=== PATIENT | female | born 1995 | race Two or more races ===

== ENCOUNTER 2023-03-03 08:59 | Emergency (ER) | payer MEDICAID ==
[~2023-03-03] VITALS: Ht 170.2 cm; Wt 80.1 kg
[2023-03-03 09:17] VITALS: BP 123/75; PULSE 100; RESP 16; TEMP 97.9; O2SAT 98
[2023-03-03] MEDS ORDERED: LIDOCAINE VISCOUS 2% 15ML UD MT ONE (09:30)
[2023-03-03] MEDS ORDERED: cefTRIAXone SOD 1,000 MG VL IM ONE (09:30)
[2023-03-03] MEDS ORDERED: DexAMETHasone SOD PHOS 10MG/1ML VIAL INJ IM ONE (09:30)
[2023-03-03] MEDS ORDERED: ONDANSETRON ODT 4 MG TAB PO ONE (09:30)
[2023-03-03] MEDS ORDERED: CLIN300C70 PO (10:00)
[2023-03-03] MEDS ORDERED: PRED20TA2 PO (10:00)
[2023-03-03] MEDS ORDERED: ZOFR4T PO (10:00)
[2023-03-03] MEDS ORDERED: LIDV15LQ MT (10:00)
== END 2023-03-03 10:07 | disposition home or self-care (01) ==
LOC: ER 08:59
DX: R50.9 Fever, unspecified (principal); J03.90 Acute tonsillitis, unspecified; R11.10 Vomiting, unspecified
CPT/HCPCS: 96372; 99284; J0696; J1100; Q0162

== ENCOUNTER 2025-01-15 10:06 | Emergency (ER) | payer MEDICAID ==
[~2025-01-15] VITALS: Ht 170.2 cm; Wt 82.8 kg
[~2025-01-15 10:06] MED LIST: CLIN1CAP70 PO; LIDO2SOL MT; PRED20TA2 PO; ZOFR4T PO
[2025-01-15] MEDS ORDERED: CEPH500C PO (11:07)
[2025-01-15] MEDS ORDERED: HYDR50TA69 PO (11:07)
[2025-01-15 11:12] VITALS: BP 140/77; PULSE 95; RESP 16; TEMP 98.7; O2SAT 97
--- NOTE | 2025-01-15 11:18 | ED.PDOC ---
History of Present Illness(SKN HPI Comments A 29 YEAR OLD MALE PRESENTS TO THE ED WITH COMPLAINT OF RASH. PATIENT STATES SHE HAS BEEN HAVING A RASH SINCE NIGHT. PATIENT STATES SHE NOTICED RASH STARTED BY THE LEFT HIP AND STATES IT SPREAD TO THE CHEST. PATIENT STATES LAST NIGHT SHE HAD ASSOCIATED FEVER AND CHILLS. PATIENT STATES TODAY SHE IS HAVING ASSOCIATED ITCHING BUT DENIES ANY OTHER SYMPTOMS. PATIENT DENIES SHORTNESS OF BREATH, CHEST PAIN, ABDOMINAL PAIN, NAUSEA, VOMITING, HEADACHE, OR OTHER COMPLAINTS. NO OTHER SYMPTOMS OR MODIFYING FACTORS AT THIS TIME. PATIENT IS AL ERT, ORIENTED X 4, AND HAS STEADY GAIT. Chief Complaint: Rash Time Seen by MD: 11:15 Primary Care Provider: Jack History of Present Illness: Nurses Notes, Medications, Allergies Allergies: Coded Allergies: NO KNOWN ALLERGIES (Unverified , 08/30/14) Home Meds Active Scripts Cephalexin Monohydrate (Cephalexin) 500 Mg Cap, 1 CAP PO QID, #32 CAP Prov:HAIM VU 01/15/25 Hydroxyzine Hcl (Hydroxyzine Hcl) 50 Mg Tab, 1 TAB PO BID, #30 TAB Prov:HAIM VU 01/15/25 Ondansetron Odt 4MG Tab (ZOFRAN PO) 4 Mg Tb, 1 MG PO Q8HR, #10 TAB ODT TAB-DISSOLVE IN MOUTH, THEN SWALLOW as needd for vomiting Prov:AGUSTIN SMITH NP 03/03/23 Lidocaine HCl (Mouth-Throat) (Lidocaine Viscous) 2 % Silvina, 5 ML MT Q6HR, #100 ML as neeed for sorethroat Prov:AGUSTIN SMITH CRIMINAL PSYCHOLOGIST 03/03/23 Prednisone (Prednisone) 20 Mg Tab, 1 TAB PO BID for 5 Days, #10 TAB start tomorrow with food Prov:AGUSTIN SMITH CRIMINAL PSYCHOLOGIST 03/03/23 Clindamycin Hcl (Clindamycin Hcl) 300 Mg Cap, 1 CAP PO QID for 10 Days, #40 CAP with food Prov:AGUSTIN SMITH NP 03/03/23 Information Source: Patient Mode of Arrival: Ambulatory Severity: Mild, Moderate Timing: Days Duration: Since onset, Days Prehospital treatment: None Location: Back, Buttock, Leg Mechanism: Insect Developed: Pruritus, Rash Occurence: Indoors Object: None Condition of Object: None Retained Foreign Body: No Wound Type: Papule Immunization Status of Animal: Current Tetanus: UTD Associated Signs and Symptoms: Redness, Pain Past Medical History PAST MEDICAL HISTORY: Denies Surgical History: Denies all surgeries DIPLOMATIC INTERPRETER/TRANSLATOR History: No Pertinent DIPLOMATIC INTERPRETER/TRANSLATOR History Family History Family History: Unknown Social History Smoker: Non-Smoker Alcohol: Denies ETOH Use Drugs: Denies Drug Use Lives In: Home Constitutional: denies: chills, diaphoresis, fatigue, fever, malaise, sweats, weakness, others EENTM: denies: blurred vision, double vision, ear bleeding, ear discharge, ear drainage, ear pain, ear ringing, eye pain, eye redness, hearing loss, mouth pain, mouth swelling, nasal discharge, nose bleeding, nose congestion, nose pain, photophobia, tearing, throat pain, throat swelling, voice changes, others Respiratory: denies: cough, hemoptysis, orthopnea, SOB at rest, shortness of breath, SOB with excertion, stridor, wheezing, others Cardiovascular: denies: chest pain, dizzy spells, diaphoresis, Dyspnea on exertion, edema, irregular heart beat, left arm pain, lightheadedness, palpitations, PND, syncope, others Gastrointestinal: denies: abdomen distended, abdominal pain, blood streaked bowels, constipated, diarrhea, dysphagia, difficulty swallowing, hematemesis, melena, nausea, poor appetite, poor fluid intake, rectal bleeding, rectal pain, vomiting, others Genitourinary: denies: abnormal vagina bleeding, burning, dyspareunia, dysuria, flank pain, frequency, hematuria, incontinence, pain, , vagina discharge, urgency, others Neurological: denies: dizziness, fainting, headache, left sided numbness, left sided weakness, numbness, paresthesia, pre-existing deficit, right sided numbness, right sided weakness, seizure, speech problems, tingling, tremors, weakness, others Musculoskeletal: denies: back pain, gout, joint pain, joint swelling, muscle pain, muscle stiffness, neck pain, others Integumetry: reports: lesions, lumps, rash; denies: bruises, change in color, change in hair/nails, dryness, laceration, wounds, others Allergic/Immunocompromised: denies: Difficulty Healing, Frequent Infections, Hives, Itching, others Hematologic/Lymphatic: denies: anemia, blood clots, easy bleeding, easy bruising, swollen glands, others Endocrine: denies: excessive hunger, excessive sweating, excessive thirst, excessive urination, flushing, intolerance to cold, intolerance to heat, unexplained weight gain, unexplained weight loss, others Psychiatric: denies: anxiety, bipolar disorder, depression, hopeless, panic disorder, schizophrenia, sleepless, suicidal, others All Other Systems: Reviewed and Negative (SEE HPI) Physical Exam General Appearance: No Apparent Distress, Normal HEENT: Normal ENT Inspection, PERRL/EOMI, Pharynx Normal, TMs Normal Neck: Full Range of Motion, Non-Tender, Normal, Normal Inspection Respiratory: Chest Non-Tender, Lungs Clear, No Accessory Muscle Use, No Respiratory Distress, Normal Breath Sounds Cardiovascular: No Edema, No JVD, No Murmur, No Gallop, Normal Peripheral Pulses, Regular Rate/Rhythm Breast Exam: Deferred Gastrointestinal: No Organomegaly, Non Tender, No Pulsatile Mass, Normal Bowel Sounds, Soft Genitalia: Deferred Pelvic: Deferred Rectal: Deferred Extremities: No calf tenderness, Normal capillary refill, Normal inspection, Normal range of motion, Non-tender, No pedal edema Musculoskeletal : Apperance: Normal Neurologic: Alert, fruit dumper II-XII nml as Tested, No Motor Deficits, Normal Affect, Normal Mood, No Sensory Deficits Cerebellar Function: Normal Reflexes: Normal Skin: Dry, Warm, Other (MULTIPLE SMALL PAPULAR AND MACULAR SKIN BUMPS ON BACK, THIGHS AND ARMS, +BITE KRAUSE, NO SWELLING AND PUS DRAINAGE. ) Peripheral Pulses: 2+ carotid (R), 2+ carotid (L), 2+ dorsalis pedis (R), 2+ dorsalis pedis (L) Lymphatic: No Adenopathy Was a procedure done? Was a procedure done?: No Differential Diagnosis (INTG) Differential Diagnosis: Atopic dermatitis, Cellulitis (FINISH THE), Contact Dermatitis, Impetigo, Intertrigo, Scabies, Urticaria X-Ray, Labs, Meds, VS Vital Signs Date Time Temp Pulse Resp B/P (MAP) Pulse Ox O2 Delivery O2 Flow Rate FiO2 01/15/25 11:12 98.7 95 16 140/77 (98) 97 98.7 01/15/25 11:12 95 16 97 Room Air* 0 21 01/15/25 10:18 98.1 106 16 144/91 98 98.1 X-Ray, Labs, Meds, VS Comment COURSE: EXTERNAL MEDICAL RECORDS REVIEWED: [NONE] INDEPENDENT HISTORIANS: [NONE] SOCIAL DETERMINANTS OF HEALTH: [NONE] LABS ORDERED: NONE REVIEWED AND INTERPRETED RESULTS: NONE IMAGING ORDERED: NONE TREATMENTS ORDERED: NO PROCEDURES PERFORMED: NONE CRITICAL CARE TIME: NONE I HAVE DISCUSSED THE PATIENT WITH THE ATTENDING PHYSICIAN, DR DE LA GARZA HE AGREES WITH THE PATIENT'S PLAN OF CARE AND DISPOSITION. BASED ON HISTORY OF PRESENT ILLNESS, AND PHYSICAL EXAM, PATIENT WILL BE DISCHARGED HOME. DISCUSSED PLAN FOR DISCHARGE HOME WITH RX: KEFLEX AND VISTARIL. MEDICATION WARNINGS GIVEN. SHARED DECISION MAKING: DISCUSSED WITH PATIENT THAT THEIR WORKUP WAS NORMAL. PATIENT INSTRUCTED TO FOLLOW UP WITH PRIMARY CARE PROVIDER IN 1-2 DAYS FOR RE- EVALUATION OF SYMPTOMS. PATIENT VERBALIZES UNDERSTANDING TO RETURN TO ED FOR NEW OR WORSENING SYMPTOMS OR IF FOLLOW UP WITH PCP CANNOT BE OBTAINED. PATIENT FEELS COMFORTABLE GOING HOME AT THIS TIME. ALL QUESTIONS ADDRESSED AT TIME OF DISCHARGE. Time of 1ST Reevaluation: 11:45 Reevaluation 1ST: Unchanged Patient Education/Counseling: Diagnosis, Treatment, Need For Follow Up Family Education/Counseling: Diagnosis, Treatment, No Family Present Medical Screening: No EMC Exist At This Time SEPSIS Sepsis Screen Date sepsis recognized/suspect: Jan 15, 2025 Time Sepsis recognized/suspect: 1015 Recent Procedure: No On Antibiotic Therapy: No Respiratory Rate >20: No Heart Rate >90: Yes Temp<36 C (96.8 F) or >38.3 C: No SBP <90 or MAP <65 mmHG: No New Acute Mental Status Change: No Is the patient on CPAP, BIPAP,: No Vital Signs Date Time Temp Pulse Resp B/P (MAP) Pulse Ox O2 Delivery O2 Flow Rate FiO2 01/15/25 11:12 98.7 95 16 140/77 (98) 97 98.7 01/15/25 11:12 95 16 97 Room Air* 0 21 01/15/25 10:18 98.1 106 16 144/91 98 98.1 Departure 1 Departure Time of Disposition: 11:40 Impression: Primary Impression: Insect bite wound Disposition: 01 HOME / SELF CARE / HOMELESS Condition: Stable Additional Instructions: F/U PCP IN 2 DAYS RECHECK. IF CONDITION BECOME WORSE, RETURN TO ED [facility]. e-Prescriptions Cephalexin Monohydrate (Cephalexin) 500 Mg Cap 1 CAP PO QID, #32 CAP Prov: HAIM VU 01/15/25 Hydroxyzine Hcl (Hydroxyzine Hcl) 50 Mg Tab 1 TAB PO BID, #30 TAB Prov: HAIM VU 01/15/25 Discharged With: Self Critical Care Note Critical Care Time?: No Stability Stability form required: No Heart Score Heart Score: Heart Score Response (Comments) Value History N/A 0 EKG N/A 0 Age N/A 0 Risk Factors N/A 0 Troponin N/A 0 Total 0 I personally scribed for HAIM VU ([email or web address]) on 01/15/25 at 11:18. Electronically submitted by Anastacio Sanchez ([email or web address]). HAIM VU Jan 15, 2025 11:18
[2025-01-16] MEDS ORDERED: TRIO1TP EX (12:25)
== END 2025-01-15 11:33 | disposition home or self-care (01) ==
LOC: ER 10:06
DX: L29.9 Pruritus, unspecified (principal); W57.XXXA Bitten or stung by nonvenomous insect and other nonvenomous arthropods, initial encounter; Y93.89 Activity, other specified; Y92.89 Other specified places as the place of occurrence of the external cause; Y99.8 Other external cause status

== ENCOUNTER 2025-01-16 10:37 | Emergency (ER) | payer MEDICAID ==
[~2025-01-16] VITALS: Ht 170.2 cm; Wt 82.3 kg
[~2025-01-16 10:37] MED LIST changes: +CEPH500C PO; +HYDR50TA69 PO
[2025-01-16] MEDS: methylPREDNISolone SOD SUCC 125 MG/2 ML VL IM ONE (12:05)
[2025-01-16] MEDS: FAMOTIDINE 20 MG TAB PO ONE (12:05)
[2025-01-16] MEDS ORDERED: methylPREDNISolone SOD SUCC 125 MG/2 ML VL ONE (12:07)
[2025-01-16] MEDS ORDERED: FAMOTIDINE 20 MG TAB ONE (12:07)
[2025-01-16] MEDS ORDERED: TRIO1TP EX (12:25)
--- NOTE | 2025-01-16 12:25 | ED.PDOC ---
History of Present Illness(SKN HPI Comments This is a pleasant 49-year-old female with a MHx that was seen yesterday for rash. Returns again today for the same complaint. The rash began on Friday night with two small lesions on the stomach. By the next morning, body aches and chills developed although no fever was measured. The rash has been spread to the legs, back, thighs, scalp, and ears with a some lesions blistering and others increasing in size The rash is described as painful and itchy She was prescribed cephalexin q.i.d. for seven days. Despite the treatment the rash continues to spread. Denies fever chills night sweats nausea vomiting diarrhea Denies persistent loss of appetite nor unintentional weight loss over the past 3 months Denies history of STI Denies cough and cold-like symptoms Denies recent travel Denies sick contact with similar rash Denies new topical creams/lotions/shampoos/detergents Denies noticing any insects Denies bruising bleeding anywhere Denies chronic skin issues or family history of skin issues Chief Complaint: Rash Time Seen by MD: 10:54 Primary Care Provider: Jack History of Present Illness: Nurses Notes, Medications, Allergies Allergies: Coded Allergies: NO KNOWN ALLERGIES (Unverified , 08/30/14) Home Meds Active Scripts Triamcinolone Acetonide (Triamcinolone Acetonide) 0.1 % Cre, 1 APPLIC EX BID for 5 Days, #60 GRAMS 0 Refills Prov:SILVINA SANTOS LADLE BUILDER 01/16/25 Cephalexin Monohydrate (Cephalexin) 500 Mg Cap, 1 CAP PO QID, #32 CAP Prov:HAIM VU 01/15/25 Hydroxyzine Hcl (Hydroxyzine Hcl) 50 Mg Tab, 1 TAB PO BID, #30 TAB Prov:HAIM VU 01/15/25 Ondansetron Odt 4MG Tab (ZOFRAN PO) 4 Mg Tb, 1 MG PO Q8HR, #10 TAB ODT TAB-DISSOLVE IN MOUTH, THEN SWALLOW as needd for vomiting Prov:AGUSTIN SMITH LADLE BUILDER 03/03/23 Lidocaine HCl (Mouth-Throat) (Lidocaine Viscous) 2 % Silvina, 5 ML MT Q6HR, #100 ML as neeed for sorethroat Prov:AGUSTIN SMITH LADLE BUILDER 03/03/23 Prednisone (Prednisone) 20 Mg Tab, 1 TAB PO BID for 5 Days, #10 TAB start tomorrow with food Prov:AGUSTIN SMITH Q LADLE BUILDER 03/03/23 Clindamycin Hcl (Clindamycin Hcl) 300 Mg Cap, 1 CAP PO QID for 10 Days, #40 CAP with food Prov:AGUSTIN SMITH Q LADLE BUILDER 03/03/23 Information Source: Patient Mode of Arrival: Ambulatory Past Medical History PAST MEDICAL HISTORY: Denies Surgical History: Denies all surgeries VIDEOTAPE EDITOR History: No Pertinent VIDEOTAPE EDITOR History Family History Family History: Unknown Social History Smoker: Non-Smoker Alcohol: Denies ETOH Use Drugs: Denies Drug Use Lives In: Home All Other Systems: Reviewed and Negative (PER HPI) Physical Exam General Appearance: No Apparent Distress, Normal HEENT: Normal ENT Inspection, Pharynx Normal, TMs Normal Neck: Full Range of Motion, Non-Tender, Normal, Normal Inspection Respiratory: Chest Non-Tender, Lungs Clear, No Accessory Muscle Use, No Respiratory Distress, Normal Breath Sounds Cardiovascular: No Edema, No JVD, No Murmur, No Gallop, Normal Peripheral Pulses, Regular Rate/Rhythm Breast Exam: Deferred Gastrointestinal: No Organomegaly, Non Tender, No Pulsatile Mass, Normal Bowel Sounds, Soft Genitalia: Deferred Pelvic: Deferred Rectal: Deferred Extremities: No calf tenderness, Normal capillary refill, Normal inspection, Normal range of motion, Non-tender, No pedal edema Musculoskeletal : Apperance: Normal Neurologic: Alert, senior military analyst II-XII nml as Tested, No Motor Deficits, Normal Affect, Normal Mood, No Sensory Deficits Cerebellar Function: Normal Reflexes: Normal Skin: Dry, Normal Color, Rash (Diffuse erythematous maculopapular rash), Warm Lymphatic: No Adenopathy Was a procedure done? Was a procedure done?: No Differential Diagnosis (INTG) Differential Diagnosis: Contact Dermatitis X-Ray, Labs, Meds, VS Vital Signs Date Time Temp Pulse Resp B/P (MAP) Pulse Ox O2 Delivery O2 Flow Rate FiO2 01/16/25 10:38 98.4 97 16 123/78 94 98.4 Current Medications Medications (Trade) Dose Ordered Sig/Danuta Route Start Time Stop Time Status Last Admin Methylprednisolone Sodium Succinate (Solu Medrol) 125 mg ONCE ONCE IM 01/16/25 12:00 01/16/25 12:01 DC 01/16/25 12:05 Diphenhydramine HCl (Benadryl Capsule) 50 mg ONCE ONCE PO 01/16/25 12:00 01/16/25 12:01 DC 01/16/25 12:05 Famotidine (Pepcid Tablet) 40 mg ONCE ONCE PO 01/16/25 12:00 01/16/25 12:01 DC 01/16/25 12:05 X-Ray, Labs, Meds, VS Comment On reevaluation, patient had symptomatic improvement. Patient is stable for discharge at this time. External notes reviewed. Test results and diagnostic imaging interpreted. All diagnostic findings, discharge care, education and instructions provided Follow-up with PCP in 2 to 3 days Patient verbalized understanding and agreed to treatment plan Vital signs stable, afebrile, no acute distress noted Patient ambulatory with strong steady gait Advised to return precautions for any new or worsening symptoms, return to ER immediately for re-evaluation Patient is aware that the purpose of this visit was for an acute medical emergency requiring emergent stabilization. Chronic conditions, including malignancies have not been ruled out. Patient is instructed to follow up with PCP as directed and discharge instructions for continued care and workup. If unable to arrange follow-up, patient is to return to the emergency department for reassessment. Patient (parent or legal guardian if applicable) was given verbal and written discharge instructions and acknowledges understanding. Time of 1ST Reevaluation: 12:24 Reevaluation 1ST: Improved Patient Education/Counseling: Diagnosis, Treatment Family Education/Counseling: Diagnosis, Treatment SEPSIS Sepsis Screen Date sepsis recognized/suspect: Jan 16, 2025 Time Sepsis recognized/suspect: 1038 Recent Procedure: No On Antibiotic Therapy: No Respiratory Rate >20: No Heart Rate >90: Yes Temp<36 C (96.8 F) or >38.3 C: No SBP <90 or MAP <65 mmHG: No New Acute Mental Status Change: No Is the patient on CPAP, BIPAP,: No Vital Signs Date Time Temp Pulse Resp B/P (MAP) Pulse Ox O2 Delivery O2 Flow Rate FiO2 01/16/25 10:38 98.4 97 16 123/78 94 98.4 Medications Medications Dose Ordered Sig/Danuta Route Start Time Stop Time Status Last Admin Dose Admin Diphenhydramine HCl 50 mg ONCE ONCE PO 01/16/25 12:00 01/16/25 12:01 DC 01/16/25 12:05 Famotidine 40 mg ONCE ONCE PO 01/16/25 12:00 01/16/25 12:01 DC 01/16/25 12:05 Methylprednisolone Sodium Succinate 125 mg ONCE ONCE IM 01/16/25 12:00 01/16/25 12:01 DC 01/16/25 12:05 Departure 1 Departure Time of Disposition: 12:24 Impression: Primary Impression: Dermatitis Disposition: HOME / SELF CARE / HOMELESS Condition: Stable Additional Instructions: Discharge Note: Continue on your medications. Drink plenty of fluids. Follow up with your primary Dr. Take your prescriptions as ordered. If your condition becomes worse call and follow up with your primary Dr. for instructions or return to the ER if needed. Thank you for visiting [facility]. e-Prescriptions Triamcinolone Acetonide (Triamcinolone Acetonide) 0.1 % Cre 1 APPLIC EX BID for 5 Days, #60 GRAMS 0 Refills Prov: SILVINA SANTOS NP 01/16/25 Discharged With: Self Critical Care Note Critical Care Time?: No Stability Stability form required: No Heart Score Heart Score: Heart Score Response (Comments) Value History N/A 0 EKG N/A 0 Age N/A 0 Risk Factors N/A 0 Troponin N/A 0 Total 0 SILVINA SANTOS NP Jan 16, 2025 12:25
[2025-01-16 12:48] VITALS: BP 126/76; PULSE 92; RESP 17; TEMP 98.2; O2SAT 95
== END 2025-01-16 12:50 | disposition home or self-care (01) ==
LOC: ER 10:37
DX: L30.9 Dermatitis, unspecified (principal); Z79.52 Long term (current) use of systemic steroids; Z79.899 Other long term (current) drug therapy
CPT/HCPCS: 96372; 99283; J2919